=== PATIENT | female | born 1940 | race Asian ===

== ENCOUNTER 2016-10-30 11:03 | Inpatient (IN) | payer MEDICARE ==
[~2016-10-30] VITALS: Ht 154.9 cm; Wt 56.8 kg
[2016-10-30] MEDS ORDERED: METO50 PO (11:10)
[2016-10-30] MEDS ORDERED: RIFA300 PO (11:10)
[2016-10-30] MEDS ORDERED: POTASSIUM (11:10)
[2016-10-30] MEDS ORDERED: AMLO-511 PO (11:10)
[2016-10-30] MEDS ORDERED: FURO20 PO (11:10)
[2016-10-30] MEDS ORDERED: DOXY50 PO (11:10)
[2016-10-30 12:50] LABS: BASOPHILS % (AUTO) 0.4 % (0.0-2.0); HEMATOCRIT 27.1 % (36-46); HEMOGLOBIN 9.4 g/dL (12.0-16.0); MEAN CORPUSCULAR HEMOGLOBIN 32.1 pg (26.0-34.0); MEAN CORPUSCULAR HGB CONC 34.8 G/dL (31.0-37.0); MEAN CORPUSCULAR VOLUME 92 fL (80-100); MONOCYTES # (AUTO) 0.5 K/uL (0.1-1.0); MONOCYTES % (AUTO) 7.8 % (2.0-9.0); NEUTROPHILS % (AUTO) 74.8 % (40.0-70.0); PLATELET COUNT (AUTO) 404 K/uL (150-450); RED BLOOD CELL COUNT(AUTO) 2.93 MIL/uL (4.00-5.20); RED CELL DISTRIBUTION WIDTH 14.2 % (11.5-14.5); WHITE BLOOD COUNT (AUTO) 6.7 K/uL (4.5-11.0)
[2016-10-30 13:02] LABS: APPEARANCE,URINE CLEAR (CLEAR); GLUCOSE, URINE (UA) 100 mg/dL (NEGATIVE); KETONES,URINE NEGATIVE (NEGATIVE); LEUKOCYTE ESTERASE ,URINE NEGATIVE (NEGATIVE); OCCULT BLOOD,URINE MODERATE (NEGATIVE); PH,URINE 6.5 (5.0-8.0); PROTEIN,URINE SEE CONFIRM (NEGATIVE)
[2016-10-30 13:04] LABS: ADD UA MICROSCOPIC YES
[2016-10-30 13:10] LABS: ALBUMIN 2.4 g/dL (3.4-5.0); CALCIUM, TOTAL 8.5 mg/dL (8.8-10.5); CREATININE 4.66 mg/dL (0.60-1.30); POTASSIUM 4.3 mmol/L (3.5-5.1); TOTAL PROTEIN, SERUM 6.6 g/dL (6.4-8.2)
[2016-10-30 13:14] LABS: SULFOSALICYLIC ACID,URINE 1+ (Negative)
[2016-10-30 13:18] LABS: SQUAMOUS EPITHELIAL CELL,UR Few /LPF (None Seen); WBC,URINE 0-2 /HPF (0-5)
[2016-10-30] MEDS ORDERED: ONDANSETRON HCL 4 MG/2 ML VIAL IVP PRN (14:30)
[2016-10-30] MEDS ORDERED: 0.9% SODIUM CHLORIDE 10 ML SYRINGE IVP PRN (14:30)
[2016-10-30] MEDS ORDERED: ACETAMINOPHEN 325 MG TABLET PO PRN (14:30)
[2016-10-30] MEDS ORDERED: DOXY100C PO (14:33)
[2016-10-30] MEDS ORDERED: KDUR20 PO (14:33)
[2016-10-30 15:02] VITALS: BP 157/77
[2016-10-30] MEDS ORDERED: FUROSEMIDE 40 MG/4 ML VIAL IVP ONE (19:00)
[2016-10-30 19:18] VITALS: BP 145/78
[2016-10-30] MEDS ORDERED: PHOSLOC PO (21:28)
[2016-10-30] MEDS ORDERED: DOCUSATE SODIUM 100 MG CAPSULE PO PRN (22:00)
[2016-10-30] MEDS: AmLODIPine BESYLATE 2.5 MG TABLET PO SCH (22:15)
[2016-10-31] VITALS (7 sets, daily range): BP systolic 130–157; BP diastolic 67–83
[2016-10-31 02:07] LABS: CALCIUM, TOTAL 8.5 mg/dL (8.8-10.5); CREATININE 4.96 mg/dL (0.60-1.30); POTASSIUM 3.5 mmol/L (3.5-5.1)
[2016-10-31 06:12] LABS: BASOPHILS # (AUTO) 0.04 K/uL (0.00-0.20); BASOPHILS % (AUTO) 0.6 % (0.0-2.0); EOSINOPHILS # (AUTO) 0.27 K/uL (0.00-0.70); EOSINOPHILS % (AUTO) 4.05 % (1.0-6.0); HEMATOCRIT 27.3 % (36-46); HEMOGLOBIN 9.2 g/dL (12.0-16.0); LYMPHOCYTES # (AUTO) 1.3 K/uL (1.0-4.8); LYMPHOCYTES % (AUTO) 18.7 % (22.0-44.0); MEAN CORPUSCULAR HEMOGLOBIN 31.8 pg (26.0-34.0); MEAN CORPUSCULAR HGB CONC 33.7 G/dL (31.0-37.0); MEAN CORPUSCULAR VOLUME 94 fL (80-100); MONOCYTES # (AUTO) 0.6 K/uL (0.1-1.0); NEUTROPHILS # (AUTO) 4.6 K/uL (1.8-7.7); NEUTROPHILS % (AUTO) 67.7 % (40.0-70.0); PLATELET COUNT (AUTO) 402 K/uL (150-450); RED BLOOD CELL COUNT(AUTO) 2.89 MIL/uL (4.00-5.20); RED CELL DISTRIBUTION WIDTH 14.3 % (11.5-14.5); WHITE BLOOD COUNT (AUTO) 6.7 K/uL (4.5-11.0)
[2016-10-31 07:10] LABS: CALCIUM, TOTAL 8.3 mg/dL (8.8-10.5); CREATININE 5.01 mg/dL (0.60-1.30); PHOSPHORUS 4.1 mg/dL (2.5-4.9); POTASSIUM 3.6 mmol/L (3.5-5.1)
[2016-10-31] MEDS: METOPROLOL TARTRATE 50 MG TABLET PO SCH ×2 (08:09→20:24)
[2016-10-31] MEDS: HEPARIN SODIUM,PORCINE 5,000 UNITS/ML VIAL SQ SCH ×2 (08:09→20:25)
[2016-10-31] MEDS: VITAMIN B COMP/VIT C/FOLIC ACID CAPSULE PO SCH (08:09)
[2016-10-31] MEDS: DOCUSATE SODIUM 100 MG CAPSULE PO SCH (08:09)
[2016-10-31] MEDS: GENTAMICIN SULFATE 0.3% 3.5 GM OPHTHALMIC OINTMENT OS SCH (08:10)
[2016-10-31] MEDS: ASPIRIN 81 MG CHEWABLE TABLET PO SCH (08:10)
[2016-10-31] MEDS: FUROSEMIDE 40 MG/4 ML VIAL IVP SCH ×2 (08:10→20:26)
[2016-10-31] MEDS: AmLODIPine BESYLATE 2.5 MG TABLET PO SCH ×2 (08:10→20:23)
[2016-10-31] MEDS: CALCIUM ACETATE 667 MG CAPSULE PO SCH ×3 (08:11→18:01)
[2016-10-31] MEDS: DOXYCYCLINE 100 MG CAPSULE PO SCH (08:11)
[2016-10-31] MEDS ORDERED: RIFAMPIN 300 MG CAPSULE PO SCH (09:00)
[2016-10-31] MEDS ORDERED: AmLODIPine BESYLATE 5 MG TABLET PO SCH (09:00)
[2016-10-31] MEDS ORDERED: VITAMIN B COMP/VIT C/FOLIC ACID CAPSULE PO SCH (09:00)
[2016-10-31] MEDS ORDERED: ACETAMINOPHEN 325 MG TABLET PO ONE (09:30)
[2016-10-31 17:57] LABS: CALCIUM, TOTAL 8.8 mg/dL (8.8-10.5); CREATININE 5.75 mg/dL (0.60-1.30); POTASSIUM 4.1 mmol/L (3.5-5.1)
[2016-11-01 03:27] VITALS: BP 164/80
[2016-11-01 07:39] VITALS: BP 148/82
[2016-11-01] MEDS: CALCIUM ACETATE 667 MG CAPSULE PO SCH ×3 (08:04→17:55)
[2016-11-01] MEDS: DOCUSATE SODIUM 100 MG CAPSULE PO SCH (08:05)
[2016-11-01] MEDS: FUROSEMIDE 40 MG/4 ML VIAL IVP SCH ×2 (08:05→20:29)
[2016-11-01] MEDS: AmLODIPine BESYLATE 2.5 MG TABLET PO SCH ×2 (08:05→20:28)
[2016-11-01] MEDS: HEPARIN SODIUM,PORCINE 5,000 UNITS/ML VIAL SQ SCH ×2 (08:05→20:29)
[2016-11-01] MEDS: DOXYCYCLINE 100 MG CAPSULE PO SCH (08:05)
[2016-11-01] MEDS: ASPIRIN 81 MG CHEWABLE TABLET PO SCH (08:06)
[2016-11-01] MEDS: METOPROLOL TARTRATE 50 MG TABLET PO SCH ×2 (08:06→20:28)
[2016-11-01] MEDS: VITAMIN B COMP/VIT C/FOLIC ACID CAPSULE PO SCH (08:06)
[2016-11-01 09:21] LABS: BASOPHILS # (AUTO) 0.04 K/uL (0.00-0.20); BASOPHILS % (AUTO) 0.6 % (0.0-2.0); EOSINOPHILS # (AUTO) 0.15 K/uL (0.00-0.70); EOSINOPHILS % (AUTO) 2.33 % (1.0-6.0); HEMATOCRIT 28.7 % (36-46); HEMOGLOBIN 9.7 g/dL (12.0-16.0); LYMPHOCYTES # (AUTO) 0.9 K/uL (1.0-4.8); LYMPHOCYTES % (AUTO) 14.3 % (22.0-44.0); MEAN CORPUSCULAR HEMOGLOBIN 31.6 pg (26.0-34.0); MEAN CORPUSCULAR HGB CONC 33.7 G/dL (31.0-37.0); MEAN CORPUSCULAR VOLUME 94 fL (80-100); MONOCYTES # (AUTO) 0.5 K/uL (0.1-1.0); MONOCYTES % (AUTO) 7.5 % (2.0-9.0); NEUTROPHILS # (AUTO) 4.7 K/uL (1.8-7.7); NEUTROPHILS % (AUTO) 75.4 % (40.0-70.0); PLATELET COUNT (AUTO) 404 K/uL (150-450); RED BLOOD CELL COUNT(AUTO) 3.06 MIL/uL (4.00-5.20); RED CELL DISTRIBUTION WIDTH 14.7 % (11.5-14.5); WHITE BLOOD COUNT (AUTO) 6.2 K/uL (4.5-11.0)
[2016-11-01 09:32] LABS: CALCIUM, TOTAL 8.9 mg/dL (8.8-10.5); CREATININE 5.46 mg/dL (0.60-1.30); POTASSIUM 3.9 mmol/L (3.5-5.1)
[2016-11-01] MEDS: GENTAMICIN SULFATE 0.3% 3.5 GM OPHTHALMIC OINTMENT OS SCH (10:59)
[2016-11-01] MEDS: RIFAMPIN 300 MG CAPSULE PO SCH (10:59)
[2016-11-01 11:34] VITALS: BP 152/72
[2016-11-01 15:30] VITALS: BP 150/70
[2016-11-01 16:39] LABS: CALCIUM, TOTAL 9.3 mg/dL (8.8-10.5); CREATININE 5.77 mg/dL (0.60-1.30)
[2016-11-01 19:33] VITALS: BP 145/85
[2016-11-01 23:53] VITALS: BP 128/77
[2016-11-02 04:31] VITALS: BP 131/74
[2016-11-02 07:34] VITALS: BP 119/72
[2016-11-02] MEDS: CALCIUM ACETATE 667 MG CAPSULE PO SCH ×2 (07:48→12:14)
[2016-11-02] MEDS: GENTAMICIN SULFATE 0.3% 3.5 GM OPHTHALMIC OINTMENT OS SCH (07:48)
[2016-11-02] MEDS: FUROSEMIDE 40 MG/4 ML VIAL IVP SCH ×2 (08:19→09:00)
[2016-11-02] MEDS: VITAMIN B COMP/VIT C/FOLIC ACID CAPSULE PO SCH (08:20)
[2016-11-02] MEDS: HEPARIN SODIUM,PORCINE 5,000 UNITS/ML VIAL SQ SCH (08:20)
[2016-11-02] MEDS: ASPIRIN 81 MG CHEWABLE TABLET PO SCH (08:20)
[2016-11-02] MEDS: DOCUSATE SODIUM 100 MG CAPSULE PO SCH (08:20)
[2016-11-02] MEDS: RIFAMPIN 300 MG CAPSULE PO SCH (08:21)
[2016-11-02] MEDS: METOPROLOL TARTRATE 50 MG TABLET PO SCH (08:21)
[2016-11-02] MEDS: AmLODIPine BESYLATE 2.5 MG TABLET PO SCH (08:21)
[2016-11-02] MEDS: DOXYCYCLINE 100 MG CAPSULE PO SCH (08:21)
[2016-11-02 10:56] LABS: CALCIUM, TOTAL 9.4 mg/dL (8.8-10.5); CREATININE 6.12 mg/dL (0.60-1.30); POTASSIUM 3.8 mmol/L (3.5-5.1)
[2016-11-02] MEDS ORDERED: FUROSEMIDE 40 MG TABLET PO SCH (11:15)
[2016-11-02 11:43] VITALS: BP 154/85
[2016-11-02] MEDS ORDERED: FOLI1CAP2 PO (14:24)
[2016-11-02] MEDS ORDERED: GENTOS OS ×2 (14:26→14:28)
[2016-11-02 14:59] VITALS: BP 139/60
[2016-11-02] MEDS ORDERED: ASPI-1093 PO (15:55)
[2016-11-02 20:03] LABS: GLUCOSE,POINT OF CARE 165 MG/DL (70-110)
== END 2016-11-02 16:00 | disposition home or self-care (01) | DRG 640 ==
LOC: EMS 11:05 → 5S 13:58
PROVIDERS: ADMIT Internal Medicine; ATTEND Internal Medicine
PROC: 3E1M39Z Irrigation of Peritoneal Cavity using Dialysate, Percutaneous Approach (ICD-10-PCS; principal; 2016-10-30)
DX: E87.70 Fluid overload, unspecified (principal); N18.6 End stage renal disease; I13.11 Hypertensive heart and chronic kidney disease without heart failure, with stage 5 chronic kidney disease, or end stage renal disease; N02.8 Recurrent and persistent hematuria with other morphologic changes; E87.1 Hypo-osmolality and hyponatremia; R25.2 Cramp and spasm; D63.1 Anemia in chronic kidney disease; Z99.2 Dependence on renal dialysis; N25.0 Renal osteodystrophy; Z79.2 Long term (current) use of antibiotics; Z88.1 Allergy status to other antibiotic agents; Z79.899 Other long term (current) drug therapy; Z83.3 Family history of diabetes mellitus; Z82.49 Family history of ischemic heart disease and other diseases of the circulatory system; Z84.1 Family history of disorders of kidney and ureter
CPT/HCPCS: 82962; 83930; 84100; 87081; 93005; 96374; 99285; J1644; J1940; J2405

== ENCOUNTER 2018-06-24 22:12 | Emergency (ER) | payer MEDICARE ==
[~2018-06-24] VITALS: Ht 154.9 cm; Wt 55.5 kg
[~2018-06-24 22:12] MED LIST: AMLO-511 PO; ASPI-1182 PO; DOXY100C PO; FOLI1CAP2 PO; FURO20 PO; GENTOS OS; KDUR20 PO; METO50 PO; PHOSLOC PO; RIFA300 PO
[2018-06-25 00:19] LABS: BASOPHILS % (AUTO) 0.9 % (0.0-2.0); EOSINOPHILS % (AUTO) 6.1 % (1.0-6.0); HEMATOCRIT 27.9 % (36-46); HEMOGLOBIN 9.2 g/dL (12.0-16.0); LYMPHOCYTES # (AUTO) 2.2 K/uL (1.0-4.8); LYMPHOCYTES % (AUTO) 28.7 % (22.0-44.0); MEAN CORPUSCULAR HEMOGLOBIN 30.2 pg (26.0-34.0); MEAN CORPUSCULAR HGB CONC 33.1 G/dL (31.0-37.0); MEAN CORPUSCULAR VOLUME 91 fL (80-100); MONOCYTES # (AUTO) 0.6 K/uL (0.1-1.0); MONOCYTES % (AUTO) 8.2 % (2.0-9.0); NEUTROPHILS # (AUTO) 4.2 K/uL (1.8-7.7); NEUTROPHILS % (AUTO) 56.1 % (40.0-70.0); PLATELET COUNT (AUTO) 309 K/uL (150-450); RED BLOOD CELL COUNT(AUTO) 3.06 MIL/uL (4.00-5.20); RED CELL DISTRIBUTION WIDTH 21.9 % (11.5-14.5)
[2018-06-25 00:28] LABS: CALCIUM, TOTAL 9.4 mg/dL (8.8-10.5); CREATININE 7.86 mg/dL (0.60-1.30); POTASSIUM 3.5 mmol/L (3.5-5.1)
[2018-06-25 00:44] LABS: BILIRUBIN,TOTAL 0.4 mg/dL (0.1-1.0); TOTAL PROTEIN, SERUM 7.5 g/dL (6.4-8.2)
[2018-06-25] MEDS ORDERED: AZITHROMYCIN 250 MG TABLET PO ONE (03:00)
[2018-06-25] MEDS ORDERED: CefTRIAXone SODIUM 1 GM/VIAL IM ONE (03:00)
[2018-06-25] MEDS ORDERED: LIDOCAINE/PF 1% 2 ML VIAL IM ONE (03:00)
[2018-06-25 03:40] VITALS: BP 127/83
== END 2018-06-25 03:43 | disposition home or self-care (01) ==
LOC: EMS 22:13
DX: J18.9 Pneumonia, unspecified organism (principal); I13.11 Hypertensive heart and chronic kidney disease without heart failure, with stage 5 chronic kidney disease, or end stage renal disease; N18.6 End stage renal disease; Z99.2 Dependence on renal dialysis; Z88.1 Allergy status to other antibiotic agents; Z79.899 Other long term (current) drug therapy
CPT/HCPCS: 36415; 71045; 80053; 83880; 84484; 85025; 93005; 96372; 99284; J0696; J3490

== ENCOUNTER 2018-07-18 19:07 | Emergency (ER) | payer MEDICARE ==
[~2018-07-18] VITALS: Ht 154.9 cm; Wt 53.1 kg
[~2018-07-18 19:07] MED LIST changes: -ASPI-1182 PO; -DOXY100C PO; -FOLI1CAP2 PO; -GENTOS OS; -PHOSLOC PO; -RIFA300 PO
[2018-07-18] MEDS ORDERED: ASPI-1182 PO (19:32)
[2018-07-18] MEDS ORDERED: SEVEC800 PO (19:32)
[2018-07-18] MEDS ORDERED: ALLO100T PO (19:32)
[2018-07-18 23:45] LABS: BASOPHILS % (AUTO) 1.3 % (0.0-2.0); EOSINOPHILS % (AUTO) 1.1 % (1.0-6.0); HEMOGLOBIN 12.8 g/dL (12.0-16.0); LYMPHOCYTES # (AUTO) 1.1 K/uL (1.0-4.8); LYMPHOCYTES % (AUTO) 26.9 % (22.0-44.0); MEAN CORPUSCULAR HEMOGLOBIN 31.4 pg (26.0-34.0); MEAN CORPUSCULAR HGB CONC 32.9 G/dL (31.0-37.0); MEAN CORPUSCULAR VOLUME 96 fL (80-100); MONOCYTES # (AUTO) 0.6 K/uL (0.1-1.0); MONOCYTES % (AUTO) 13.6 % (2.0-9.0); NEUTROPHILS # (AUTO) 2.4 K/uL (1.8-7.7); NEUTROPHILS % (AUTO) 57.1 % (40.0-70.0); PLATELET COUNT (AUTO) 218 K/uL (150-450); RED BLOOD CELL COUNT(AUTO) 4.08 MIL/uL (4.00-5.20)
[2018-07-18 23:54] LABS: CREATININE 4.04 mg/dL (0.60-1.30); POTASSIUM 3.2 mmol/L (3.5-5.1)
[2018-07-19] LABS: ALBUMIN 3.1 g/dL (3.4-5.0); BILIRUBIN,TOTAL 0.3 mg/dL (0.1-1.0); TOTAL PROTEIN, SERUM 7.3 g/dL (6.4-8.2)
[2018-07-19] MEDS ORDERED: LEVOFLOXACIN 250 MG TABLET PO ONE
[2018-07-19] MEDS ORDERED: ALBUTEROL SULFATE HFA 90 MCG/PUFF 8 GM INHALER IH ONE
[2018-07-19 00:07] LABS: LACTIC ACID 1.2 mmol/L (0.4-2.0)
[2018-07-19 00:29] VITALS: BP 147/71
== END 2018-07-19 00:31 | disposition home or self-care (01) ==
LOC: EMS 19:08
DX: J18.9 Pneumonia, unspecified organism (principal); I13.11 Hypertensive heart and chronic kidney disease without heart failure, with stage 5 chronic kidney disease, or end stage renal disease; N18.6 End stage renal disease; Z99.2 Dependence on renal dialysis; Z79.899 Other long term (current) drug therapy; Z88.1 Allergy status to other antibiotic agents
CPT/HCPCS: 83605; 93005; 94640; J3535

== ENCOUNTER 2018-07-22 15:04 | Emergency (ER) | payer MEDICARE ==
[~2018-07-22] VITALS: Ht 154.9 cm; Wt 52.7 kg
[~2018-07-22 15:04] MED LIST changes: +ALLO100T PO; +ASPI-1182 PO; -KDUR20 PO; +SEVEC800 PO
[2018-07-22 15:57] LABS: BASOPHILS % (AUTO) 1.7 % (0.0-2.0); EOSINOPHILS % (AUTO) 1.9 % (1.0-6.0); HEMATOCRIT 43.7 % (36-46); HEMOGLOBIN 14.2 g/dL (12.0-16.0); LYMPHOCYTES # (AUTO) 1.7 K/uL (1.0-4.8); LYMPHOCYTES % (AUTO) 29.9 % (22.0-44.0); MEAN CORPUSCULAR HGB CONC 32.5 G/dL (31.0-37.0); MEAN CORPUSCULAR VOLUME 96 fL (80-100); MONOCYTES # (AUTO) 0.4 K/uL (0.1-1.0); MONOCYTES % (AUTO) 6.5 % (2.0-9.0); NEUTROPHILS # (AUTO) 3.4 K/uL (1.8-7.7); PLATELET COUNT (AUTO) 280 K/uL (150-450); RED BLOOD CELL COUNT(AUTO) 4.57 MIL/uL (4.00-5.20); RED CELL DISTRIBUTION WIDTH 18.6 % (11.5-14.5)
[2018-07-22 16:09] LABS: CALCIUM, TOTAL 9.5 mg/dL (8.8-10.5); CREATININE 7.36 mg/dL (0.60-1.30); POTASSIUM 3.9 mmol/L (3.5-5.1)
[2018-07-22 16:25] LABS: ALBUMIN 3.3 g/dL (3.4-5.0); BILIRUBIN,TOTAL 0.4 mg/dL (0.1-1.0)
[2018-07-22 20:30] LABS: APPEARANCE,URINE CLEAR (CLEAR); BILIRUBIN,URINE NEGATIVE (NEGATIVE); GLUCOSE, URINE (UA) 100 mg/dL (NEGATIVE); KETONES,URINE NEGATIVE (NEGATIVE); LEUKOCYTE ESTERASE ,URINE NEGATIVE (NEGATIVE); NITRATE,URINE NEGATIVE (NEGATIVE); OCCULT BLOOD,URINE TRACE (NEGATIVE); PROTEIN,URINE SEE CONFIRM (NEGATIVE); UROBILINOGEN,URINE 0.2 mg/dL (<=1.0)
[2018-07-22 20:39] LABS: SULFOSALICYLIC ACID,URINE 4+ (Negative)
[2018-07-22 20:41] LABS: BACTERIA,URINE None Seen /HPF (None Seen); SQUAMOUS EPITHELIAL CELL,UR Few /LPF (None Seen); WBC,URINE 0-2 /HPF (0-5)
[2018-07-22 22:25] VITALS: BP 132/74
== END 2018-07-22 22:37 | disposition home or self-care (01) ==
LOC: EMS 15:05
DX: K80.20 Calculus of gallbladder without cholecystitis without obstruction (principal); I12.0 Hypertensive chronic kidney disease with stage 5 chronic kidney disease or end stage renal disease; N18.6 End stage renal disease; I25.10 Atherosclerotic heart disease of native coronary artery without angina pectoris; Z99.2 Dependence on renal dialysis; Z88.1 Allergy status to other antibiotic agents; Z79.82 Long term (current) use of aspirin; Z79.899 Other long term (current) drug therapy
CPT/HCPCS: 71250; 72192; 74150; 74177; 93005

== ENCOUNTER 2018-11-12 19:48 | Emergency (ER) | payer MEDICARE ==
[~2018-11-12] VITALS: Ht 154.9 cm; Wt 53.6 kg
[~2018-11-12 19:48] MED LIST changes: -AMLO-511 PO; +AMLO5TAB9 PO
[2018-11-12 21:15] LABS: BASOPHILS % (AUTO) 1.1 % (0.0-2.0); EOSINOPHILS % (AUTO) 3.9 % (1.0-6.0); HEMATOCRIT 50.5 % (36-46); HEMOGLOBIN 16.1 g/dL (12.0-16.0); LYMPHOCYTES # (AUTO) 1.2 K/uL (1.0-4.8); LYMPHOCYTES % (AUTO) 28.6 % (22.0-44.0); MEAN CORPUSCULAR HEMOGLOBIN 31.7 pg (26.0-34.0); MEAN CORPUSCULAR HGB CONC 31.9 G/dL (31.0-37.0); MEAN CORPUSCULAR VOLUME 99 fL (80-100); MONOCYTES # (AUTO) 0.3 K/uL (0.1-1.0); MONOCYTES % (AUTO) 7.5 % (2.0-9.0); NEUTROPHILS # (AUTO) 2.5 K/uL (1.8-7.7); NEUTROPHILS % (AUTO) 58.9 % (40.0-70.0); PLATELET COUNT (AUTO) 208 K/uL (150-450); RED BLOOD CELL COUNT(AUTO) 5.08 MIL/uL (4.00-5.20); RED CELL DISTRIBUTION WIDTH 17.4 % (11.5-14.5)
[2018-11-12 21:28] LABS: CALCIUM, TOTAL 9.3 mg/dL (8.8-10.5); CREATININE 5.88 mg/dL (0.60-1.30); POTASSIUM 4.4 mmol/L (3.5-5.1)
[2018-11-12] MEDS ORDERED: CloNIDine HCL 0.2 MG TABLET PO ONE (21:30)
[2018-11-12] MEDS ORDERED: ACETAMINOPHEN 325 MG TABLET PO ONE (21:30)
[2018-11-12 21:33] LABS: ALBUMIN 3.5 g/dL (3.4-5.0); BILIRUBIN,TOTAL 0.4 mg/dL (0.1-1.0); TOTAL PROTEIN, SERUM 7.7 g/dL (6.4-8.2)
[2018-11-12 22:56] VITALS: BP 123/59
== END 2018-11-12 23:12 | disposition home or self-care (01) ==
LOC: EMS 19:50
DX: I10 Essential (primary) hypertension (principal); R51 Headache; Z88.1 Allergy status to other antibiotic agents; Z79.82 Long term (current) use of aspirin; Z79.899 Other long term (current) drug therapy
CPT/HCPCS: 93005

== ENCOUNTER 2018-11-28 05:52 | Emergency (ER) | payer MEDICARE ==
[~2018-11-28] VITALS: Ht 157.5 cm; Wt 54.5 kg
[2018-11-28] MEDS ORDERED: AMLO10TA7 PO (06:04)
[2018-11-28 06:36] LABS: BASOPHILS % (AUTO) 0.9 % (0.0-2.0); EOSINOPHILS % (AUTO) 3.5 % (1.0-6.0); HEMOGLOBIN 14.9 g/dL (12.0-16.0); LYMPHOCYTES # (AUTO) 2.3 K/uL (1.0-4.8); LYMPHOCYTES % (AUTO) 36.6 % (22.0-44.0); MEAN CORPUSCULAR HEMOGLOBIN 30.7 pg (26.0-34.0); MEAN CORPUSCULAR HGB CONC 32.3 G/dL (31.0-37.0); MEAN CORPUSCULAR VOLUME 95 fL (80-100); MONOCYTES # (AUTO) 0.4 K/uL (0.1-1.0); NEUTROPHILS # (AUTO) 3.3 K/uL (1.8-7.7); PLATELET COUNT (AUTO) 202 K/uL (150-450); RED BLOOD CELL COUNT(AUTO) 4.85 MIL/uL (4.00-5.20); RED CELL DISTRIBUTION WIDTH 16.1 % (11.5-14.5)
[2018-11-28 07:05] LABS: CALCIUM, TOTAL 9.1 mg/dL (8.8-10.5); CREATININE 8.98 mg/dL (0.60-1.30); POTASSIUM 4.7 mmol/L (3.5-5.1)
[2018-11-28 07:12] LABS: ALBUMIN 3.2 g/dL (3.4-5.0); BILIRUBIN,TOTAL 0.4 mg/dL (0.1-1.0); TOTAL PROTEIN, SERUM 7.1 g/dL (6.4-8.2)
[2018-11-28] MEDS ORDERED: 0.9% SODIUM CHLORIDE 10 ML SYRINGE IVP PRN (07:30)
[2018-11-28] MEDS ORDERED: ONDANSETRON HCL 4 MG/2 ML VIAL IVP PRN (07:30)
[2018-11-28] MEDS ORDERED: ACETAMINOPHEN 325 MG TABLET PO PRN (07:30)
[2018-11-28 12:39] VITALS: BP 198/88
== END 2018-11-28 12:41 | disposition short-term general hospital (02) ==
LOC: EMS 05:53
DX: I13.11 Hypertensive heart and chronic kidney disease without heart failure, with stage 5 chronic kidney disease, or end stage renal disease (principal); N18.6 End stage renal disease; D64.9 Anemia, unspecified; Z79.82 Long term (current) use of aspirin; Z79.899 Other long term (current) drug therapy; Z88.1 Allergy status to other antibiotic agents
CPT/HCPCS: 93005

== ENCOUNTER 2018-12-05 03:48 | Emergency (ER) | payer MEDICARE ==
[~2018-12-05] VITALS: Ht 154.9 cm; Wt 54.0 kg
[~2018-12-05 03:48] MED LIST changes: +AMLO10TA7 PO; -AMLO5TAB9 PO
[2018-12-05] MEDS ORDERED: HYDR-2924 PO (03:54)
[2018-12-05 04:40] LABS: BASOPHILS % (AUTO) 1.8 % (0.0-2.0); EOSINOPHILS % (AUTO) 3.2 % (1.0-6.0); HEMATOCRIT 43.2 % (36-46); HEMOGLOBIN 13.8 g/dL (12.0-16.0); LYMPHOCYTES # (AUTO) 1.5 K/uL (1.0-4.8); LYMPHOCYTES % (AUTO) 29.9 % (22.0-44.0); MEAN CORPUSCULAR HGB CONC 31.9 G/dL (31.0-37.0); MEAN CORPUSCULAR VOLUME 94 fL (80-100); MONOCYTES # (AUTO) 0.5 K/uL (0.1-1.0); MONOCYTES % (AUTO) 9.5 % (2.0-9.0); NEUTROPHILS # (AUTO) 2.7 K/uL (1.8-7.7); NEUTROPHILS % (AUTO) 55.6 % (40.0-70.0); PLATELET COUNT (AUTO) 216 K/uL (150-450); RED BLOOD CELL COUNT(AUTO) 4.61 MIL/uL (4.00-5.20); RED CELL DISTRIBUTION WIDTH 15.6 % (11.5-14.5)
[2018-12-05 04:47] LABS: CREATININE 8.44 mg/dL (0.60-1.30); POTASSIUM 4.5 mmol/L (3.5-5.1)
[2018-12-05 04:52] LABS: ALBUMIN 3.5 g/dL (3.4-5.0); BILIRUBIN,TOTAL 0.4 mg/dL (0.1-1.0); TOTAL PROTEIN, SERUM 7.2 g/dL (6.4-8.2)
[2018-12-05] MEDS ORDERED: PB/HYOSCY/ATR/SCOP/LIDO/MAALOX 55 ML BOTTLE PO ONE (06:00)
[2018-12-05] MEDS ORDERED: METOPROLOL SUCCINATE 50 MG ER TABLET PO ONE (06:00)
[2018-12-05] MEDS ORDERED: HydrALAZINE HCL 25 MG TABLET PO ONE (06:00)
[2018-12-05] MEDS ORDERED: AmLODIPine BESYLATE 5 MG TABLET PO ONE (06:00)
[2018-12-05 06:08] LABS: APPEARANCE,URINE CLEAR (CLEAR); BILIRUBIN,URINE NEGATIVE (NEGATIVE); GLUCOSE, URINE (UA) 100 mg/dL (NEGATIVE); KETONES,URINE NEGATIVE (NEGATIVE); LEUKOCYTE ESTERASE ,URINE NEGATIVE (NEGATIVE); NITRATE,URINE NEGATIVE (NEGATIVE); OCCULT BLOOD,URINE NEGATIVE (NEGATIVE); PH,URINE 7.5 (5.0-8.0); PROTEIN,URINE SEE CONFIRM (NEGATIVE); UROBILINOGEN,URINE 0.2 mg/dL (<=1.0)
[2018-12-05 06:15] LABS: BACTERIA,URINE None Seen /HPF (None Seen); SQUAMOUS EPITHELIAL CELL,UR Rare /LPF (None Seen)
[2018-12-05 06:16] LABS: SULFOSALICYLIC ACID,URINE 4+ (Negative)
[2018-12-05] MEDS ORDERED: ASPIRIN 81 MG CHEWABLE TABLET PO ONE (07:30)
[2018-12-05 08:02] LABS: PROTHROMBIN TIME 10.5 SEC (9.4-11.6)
[2018-12-05] MEDS ORDERED: MORPHINE SULFATE 4 MG/ML SYRINGE IVP ONE (08:30)
[2018-12-05] MEDS ORDERED: ONDANSETRON HCL 4 MG/2 ML VIAL IVP ONE (08:30)
[2018-12-05 10:50] VITALS: BP 127/55
== END 2018-12-05 11:05 | disposition short-term general hospital (02) ==
LOC: EMS 03:50
DX: I13.11 Hypertensive heart and chronic kidney disease without heart failure, with stage 5 chronic kidney disease, or end stage renal disease (principal); N18.6 End stage renal disease; K85.90 Acute pancreatitis without necrosis or infection, unspecified; R10.13 Epigastric pain; Z99.2 Dependence on renal dialysis; Z88.8 Allergy status to other drugs, medicaments and biological substances; Z79.82 Long term (current) use of aspirin; Z79.899 Other long term (current) drug therapy
CPT/HCPCS: 36415; 71045; 80053; 81001; 83690; 83880; 84484; 85025; 85610; 85730; 93005; 96374; 96375; 99285; J2270; J2405